=== PATIENT | female | born 1990 | race Caucasian/White ===

== ENCOUNTER 2020-12-09 07:18 | Inpatient (IN) | payer OTHER ==
[~2020-12-09] VITALS: Ht 162.6 cm; Wt 86.7 kg
[2020-12-09] MEDS ORDERED: BENZOCAINE/MENTHOL LOZENGE PO PRN (07:45)
[2020-12-09] MEDS ORDERED: BACITRACIN 28 GM OINTMENT TP PRN (07:45)
[2020-12-09] MEDS ORDERED: HYDROmorphone 2 MG/ML VIAL IVP PRN (07:45)
[2020-12-09] MEDS ORDERED: ONDANSETRON HCL 4 MG/2 ML VIAL IVP ONE (07:51)
[2020-12-09] MEDS ORDERED: PROPOFOL 1% 20 ML VIAL IVP ONE (07:51)
[2020-12-09] MEDS ORDERED: FentaNYL CITRATE PF 100 MCG/2 ML VIAL IVP ONE (07:51)
[2020-12-09] MEDS ORDERED: LIDOCAINE/PF 2% 5 ML VIAL IM ONE (07:51)
[2020-12-09] MEDS ORDERED: ROCURONIUM BROMIDE 10 MG/ML 5 ML VIAL IVP ONE (07:51)
[2020-12-09] MEDS ORDERED: MIDAZOLAM HCL 2 MG/2 ML VIAL IVP ONE (07:51)
[2020-12-09] MEDS ORDERED: RINGERS SOLUTION,LACTATED 1,000 ML IV ONE ×2 (08:00→12:33)
[2020-12-09 08:42] LABS: BASOPHILS % (AUTO) 0.7 % (0.0-2.0); EOSINOPHILS % (AUTO) 2.1 % (1.0-6.0); HEMATOCRIT 30.8 % (36-46); LYMPHOCYTES # (AUTO) 2.2 K/uL (1.0-4.8); LYMPHOCYTES % (AUTO) 24.3 % (22.0-44.0); MEAN CORPUSCULAR HEMOGLOBIN 24.3 pg (26.0-34.0); MEAN CORPUSCULAR HGB CONC 32.5 G/dL (31.0-37.0); MEAN CORPUSCULAR VOLUME 75 fL (80-100); MONOCYTES # (AUTO) 0.6 K/uL (0.1-1.0); MONOCYTES % (AUTO) 6.7 % (2.0-9.0); NEUTROPHILS # (AUTO) 6.1 K/uL (1.8-7.7); NEUTROPHILS % (AUTO) 66.2 % (40.0-70.0); PLATELET COUNT (AUTO) 599 K/uL (150-450); RED BLOOD CELL COUNT(AUTO) 4.11 MIL/uL (4.00-5.20); RED CELL DISTRIBUTION WIDTH 15.2 % (11.5-14.5)
[2020-12-09 08:53] LABS: INR 1.1 (0.9-1.1); PROTHROMBIN TIME 11.6 SEC (9.4-11.6)
[2020-12-09] MEDS ORDERED: CeFAZolin 2 GM/DEXTROSE 50 ML IV ONE (09:00)
[2020-12-09 09:08] LABS: ANION GAP 10 mmol/L (8-16); CALCIUM, TOTAL 9.2 mg/dL (8.8-10.5); CARBON DIOXIDE 26 mmol/L (22-29); CHLORIDE 100 mmol/L (98-107); CREATININE 0.87 mg/dL (0.60-1.30); GLOMERULAR FILTR. RATE CALC > 60 mL/min (>60); GLUCOSE,RANDOM 94 mg/dL (70-110); POTASSIUM 4.4 mmol/L (3.5-5.1); SODIUM SERUM 136 mmol/L (136-145); UREA NITROGEN, BLOOD 23 mg/dL (7-18)
[2020-12-09 09:10] LABS: COVID AG,FIA SOURCE NASOPHARYNGEAL
[2020-12-09 09:21] LABS: HCG,QUANTITATIVE < 1 mIU/mL (0-6)
[2020-12-09] MEDS ORDERED: CefTRIAXone SODIUM 1 GM/VIAL ONE (09:23)
[2020-12-09] MEDS ORDERED: LIDOCAINE 1%/EPI 1:200,000/PF 30 ML VIAL ONE (09:23)
[2020-12-09] MEDS ORDERED: BACITRACIN 50,000 UNITS/VIAL ONE (09:24)
[2020-12-09] MEDS ORDERED: VANCOMYCIN HCL 1 GM/VIAL ONE (09:24)
[2020-12-09] MEDS ORDERED: CeFAZolin 1 GM/DEXTROSE 50 ML IV ONE (10:03)
[2020-12-09] MEDS ORDERED: ACETAMINOPHEN 1000 MG/ISO-OSM 100 ML IV ONE ×2 (10:17→20:15)
[2020-12-09] MEDS ORDERED: SUGAMMADEX SODIUM 200 MG/2 ML VIAL IVP ONE (10:24)
[2020-12-09] MEDS ORDERED: FentaNYL CITRATE PF 100 MCG/2 ML VIAL IVP PRN (11:15)
[2020-12-09] MEDS ORDERED: MEPERIDINE-PF 25 MG/ML VIAL IVP PRN (11:15)
[2020-12-09] MEDS ORDERED: ROCURONIUM BROMIDE 10 MG/ML 5 ML VIAL ONE (11:23)
[2020-12-09] MEDS ORDERED: HYDROmorphone 2 MG/ML VIAL ONE (14:11)
[2020-12-09] MEDS: HYDROmorphone 2 MG/ML VIAL IVP PRN ×2 (14:15→14:47)
[2020-12-09 17:37] VITALS: BP 133/80
[2020-12-09 17:45] LABS: APPEARANCE,CSF CLEAR (CLEAR); COLOR,CSF COLORLESS (COLORLESS); CSF TOTAL VOLUME 1.1 mL; CSF TUBE NUMBER 1
[2020-12-09 17:46] LABS: LYMPHOCYTES1,CSF 0 %; MONOCYTES1,CSF 9 %; NEUTROPHILS1,CSF 91 %
[2020-12-09] MEDS ORDERED: CeFAZolin 1 GM/DEXTROSE 50 ML IV SCH (18:00)
[2020-12-09] MEDS ORDERED: *CLINICAL-CEFEPIME DOSING CLINICAL ONE (18:45)
[2020-12-09] MEDS: HYDROCODONE/ACETAMINOPHEN 10-325 MG TABLET PO PRN ×2 (19:00→22:56)
[2020-12-09] MEDS: ONDANSETRON HCL 4 MG/2 ML VIAL IVP PRN (19:00)
[2020-12-09 19:15] LABS: OTHER CELLS,CSF 0
[2020-12-09] MEDS ORDERED: VANCOMYCIN HCL 750 MG in DEXTROSE 5%-WATER 250 ML IV ONE (19:15)
[2020-12-09 19:50] VITALS: BP 127/77
[2020-12-09] MEDS ORDERED: PARoxetine HCL 10 MG TABLET PO ONE (20:00)
[2020-12-09] MEDS: OXYGEN THERAPY IH SCH (20:00)
[2020-12-09] MEDS: DOCUSATE SODIUM 100 MG CAPSULE PO SCH (21:00)
[2020-12-09] MEDS ORDERED: SODIUM CHLORIDE 0.9% 250 ML IV ONE (21:07)
[2020-12-09] MEDS: BACLOFEN 10 MG TABLET PO SCH (21:13)
[2020-12-09] MEDS: CarBAMazepine 200 MG TABLET PO SCH (21:13)
[2020-12-09] MEDS: DIVALPROEX SODIUM 500 MG DR TABLET PO SCH (21:13)
[2020-12-09] MEDS: METOPROLOL TARTRATE 25 MG TABLET PO SCH (21:13)
[2020-12-09] MEDS: LevETIRAcetam 500 MG TABLET PO SCH (21:14)
[2020-12-09] MEDS: CEFEPIME HCL 1 GM in DEXTROSE 5%-WATER 50 ML IV SCH (22:32)
[2020-12-09 23:27] VITALS: BP 129/78
[2020-12-10] MEDS ORDERED: VANCOMYCIN HCL 1 GM/D5% WATER 200 ML IV SCH
[2020-12-10] MEDS: VANCOMYCIN HCL 750 MG in DEXTROSE 5%-WATER 250 ML IV SCH ×4 (01:00→23:48)
[2020-12-10] MEDS: ONDANSETRON HCL 4 MG/2 ML VIAL IVP PRN (01:01)
[2020-12-10] MEDS: DiphenhydrAMINE HCL 50 MG/ML VIAL IVP PRN (02:05)
[2020-12-10] MEDS: HYDROCODONE/ACETAMINOPHEN 10-325 MG TABLET PO PRN ×3 (03:39→16:02)
[2020-12-10 04:20] VITALS: BP 111/64
[2020-12-10] MEDS: CEFEPIME HCL 1 GM in DEXTROSE 5%-WATER 50 ML IV SCH (05:31)
[2020-12-10] MEDS ORDERED: KETOROLAC TROMETHAMINE 30 MG/ML VIAL IVP PRN (06:30)
[2020-12-10] MEDS ORDERED: KETOROLAC TROMETHAMINE 15 MG/ML VIAL IVP ONE (06:45)
[2020-12-10 06:57] LABS: ALANINE AMINOTRANSFERASE 12 U/L (12-78); ALBUMIN 2.8 g/dL (3.4-5.0); ALKALINE PHOSPHATASE 72 U/L (46-116); ANION GAP 10 mmol/L (8-16); ASPARTATE AMINOTRANSFERASE 9 U/L (15-37); BILIRUBIN,TOTAL 0.2 mg/dL (0.1-1.0); CALCIUM, TOTAL 8.8 mg/dL (8.8-10.5); CARBON DIOXIDE 25 mmol/L (22-29); CHLORIDE 96 mmol/L (98-107); CREATININE 0.72 mg/dL (0.60-1.30); GLOMERULAR FILTR. RATE CALC > 60 mL/min (>60); GLUCOSE,RANDOM 121 mg/dL (70-110); POTASSIUM 3.8 mmol/L (3.5-5.1); SODIUM SERUM 131 mmol/L (136-145); TOTAL PROTEIN, SERUM 7.4 g/dL (6.4-8.2); UREA NITROGEN, BLOOD 15 mg/dL (7-18)
[2020-12-10 07:01] LABS: BASOPHILS % (AUTO) 0.4 % (0.0-2.0); EOSINOPHILS % (AUTO) 0 % (1.0-6.0); HEMATOCRIT 31.8 % (36-46); HEMOGLOBIN 9.9 g/dL (12.0-16.0); LYMPHOCYTES # (AUTO) 1.2 K/uL (1.0-4.8); LYMPHOCYTES % (AUTO) 7.8 % (22.0-44.0); MEAN CORPUSCULAR HEMOGLOBIN 24.2 pg (26.0-34.0); MEAN CORPUSCULAR HGB CONC 31.3 G/dL (31.0-37.0); MEAN CORPUSCULAR VOLUME 78 fL (80-100); MONOCYTES # (AUTO) 0.9 K/uL (0.1-1.0); MONOCYTES % (AUTO) 5.8 % (2.0-9.0); NEUTROPHILS # (AUTO) 13.6 K/uL (1.8-7.7); RED CELL DISTRIBUTION WIDTH 15.3 % (11.5-14.5)
[2020-12-10 07:03] LABS: PLATELET COUNT (AUTO) 602 K/uL (150-450)
[2020-12-10 07:07] VITALS: BP 108/74
[2020-12-10 07:59] LABS: PLATELET MORPHOLOGY COMMENT GIANT PLTS PRESENT
[2020-12-10] MEDS: OXYGEN THERAPY IH SCH (08:00)
[2020-12-10] MEDS: CarBAMazepine 200 MG TABLET PO SCH ×2 (08:02→20:21)
[2020-12-10] MEDS: METOPROLOL TARTRATE 25 MG TABLET PO SCH ×2 (08:02→20:22)
[2020-12-10] MEDS: BACLOFEN 10 MG TABLET PO SCH ×2 (08:02→20:21)
[2020-12-10] MEDS: LevETIRAcetam 500 MG TABLET PO SCH ×2 (08:02→20:22)
[2020-12-10] MEDS: DIVALPROEX SODIUM 500 MG DR TABLET PO SCH ×2 (08:03→20:22)
[2020-12-10] MEDS: DOCUSATE SODIUM 100 MG CAPSULE PO SCH ×2 (08:03→20:21)
[2020-12-10 11:22] VITALS: BP 119/73
[2020-12-10] MEDS: CEFEPIME HCL 2 GM in DEXTROSE 5%-WATER 50 ML IV SCH ×2 (14:16→22:10)
[2020-12-10 16:04] VITALS: BP 122/64
[2020-12-10 19:28] VITALS: BP 109/55
[2020-12-10 23:19] VITALS: BP 113/58
[2020-12-11] MEDS: HYDROCODONE/ACETAMINOPHEN 10-325 MG TABLET PO PRN ×3 (03:02→14:56)
[2020-12-11] MEDS: ONDANSETRON HCL 4 MG/2 ML VIAL IVP PRN ×2 (03:55→20:50)
[2020-12-11 04:26] VITALS: BP 105/56
[2020-12-11] MEDS: CEFEPIME HCL 2 GM in DEXTROSE 5%-WATER 50 ML IV SCH ×3 (05:19→22:20)
[2020-12-11 06:20] LABS: BASOPHILS % (AUTO) 0.6 % (0.0-2.0); EOSINOPHILS % (AUTO) 0.6 % (1.0-6.0); HEMATOCRIT 27.8 % (36-46); HEMOGLOBIN 8.9 g/dL (12.0-16.0); LYMPHOCYTES # (AUTO) 1.9 K/uL (1.0-4.8); LYMPHOCYTES % (AUTO) 20.5 % (22.0-44.0); MEAN CORPUSCULAR HEMOGLOBIN 24.3 pg (26.0-34.0); MEAN CORPUSCULAR HGB CONC 32.2 G/dL (31.0-37.0); MEAN CORPUSCULAR VOLUME 76 fL (80-100); MONOCYTES # (AUTO) 0.7 K/uL (0.1-1.0); MONOCYTES % (AUTO) 7.2 % (2.0-9.0); NEUTROPHILS # (AUTO) 6.7 K/uL (1.8-7.7); NEUTROPHILS % (AUTO) 71.1 % (40.0-70.0); PLATELET COUNT (AUTO) 557 K/uL (150-450); RED BLOOD CELL COUNT(AUTO) 3.68 MIL/uL (4.00-5.20); RED CELL DISTRIBUTION WIDTH 15.7 % (11.5-14.5)
[2020-12-11 06:43] LABS: ALANINE AMINOTRANSFERASE 12 U/L (12-78); ALBUMIN 2.6 g/dL (3.4-5.0); ALKALINE PHOSPHATASE 67 U/L (46-116); ANION GAP 12 mmol/L (8-16); ASPARTATE AMINOTRANSFERASE 7 U/L (15-37); BILIRUBIN,TOTAL 0.2 mg/dL (0.1-1.0); CALCIUM, TOTAL 8.6 mg/dL (8.8-10.5); CARBON DIOXIDE 25 mmol/L (22-29); CHLORIDE 99 mmol/L (98-107); CREATININE 0.71 mg/dL (0.60-1.30); GLOMERULAR FILTR. RATE CALC > 60 mL/min (>60); GLUCOSE,RANDOM 92 mg/dL (70-110); POTASSIUM 3.8 mmol/L (3.5-5.1); SODIUM SERUM 136 mmol/L (136-145); TOTAL PROTEIN, SERUM 7.2 g/dL (6.4-8.2); UREA NITROGEN, BLOOD 11 mg/dL (7-18); VANCOMYCIN,RANDOM 16.7 mcg/mL (25.0-50.0)
[2020-12-11 07:13] VITALS: BP 104/65
[2020-12-11] MEDS: OXYGEN THERAPY IH SCH ×2 (08:00→20:00)
[2020-12-11] MEDS: DIVALPROEX SODIUM 500 MG DR TABLET PO SCH ×2 (08:23→20:21)
[2020-12-11] MEDS: DOCUSATE SODIUM 100 MG CAPSULE PO SCH ×2 (08:23→20:21)
[2020-12-11] MEDS: LevETIRAcetam 500 MG TABLET PO SCH ×2 (08:23→20:21)
[2020-12-11] MEDS: BACLOFEN 10 MG TABLET PO SCH ×2 (08:23→20:21)
[2020-12-11] MEDS: CarBAMazepine 200 MG TABLET PO SCH ×2 (08:23→20:22)
[2020-12-11] MEDS: METOPROLOL TARTRATE 25 MG TABLET PO SCH ×2 (08:23→23:30)
[2020-12-11] MEDS ORDERED: ACETAMINOPHEN 325 MG TABLET ONE (08:25)
[2020-12-11] MEDS: VANCOMYCIN HCL 750 MG in DEXTROSE 5%-WATER 250 ML IV SCH (09:31)
[2020-12-11 11:48] VITALS: BP 105/65
[2020-12-11 15:42] VITALS: BP 117/87
[2020-12-11 19:16] VITALS: BP 113/66
[2020-12-11] MEDS: VANCOMYCIN HCL 1 GM/D5% WATER 200 ML IV SCH (23:41)
[2020-12-11 23:42] VITALS: BP 127/65
[2020-12-12] MEDS: HYDROCODONE/ACETAMINOPHEN 10-325 MG TABLET PO PRN ×3 (01:07→15:08)
[2020-12-12] MEDS: CEFEPIME HCL 2 GM in DEXTROSE 5%-WATER 50 ML IV SCH ×4 (05:15→22:20)
[2020-12-12 07:15] LABS: EOSINOPHILS % (AUTO) 1.8 % (1.0-6.0); HEMATOCRIT 27.7 % (36-46); HEMOGLOBIN 8.9 g/dL (12.0-16.0); LYMPHOCYTES # (AUTO) 2.3 K/uL (1.0-4.8); LYMPHOCYTES % (AUTO) 35.1 % (22.0-44.0); MEAN CORPUSCULAR HEMOGLOBIN 24.2 pg (26.0-34.0); MEAN CORPUSCULAR VOLUME 76 fL (80-100); MONOCYTES # (AUTO) 0.6 K/uL (0.1-1.0); MONOCYTES % (AUTO) 9.9 % (2.0-9.0); NEUTROPHILS # (AUTO) 3.4 K/uL (1.8-7.7); NEUTROPHILS % (AUTO) 52.2 % (40.0-70.0); PLATELET COUNT (AUTO) 568 K/uL (150-450); RED BLOOD CELL COUNT(AUTO) 3.66 MIL/uL (4.00-5.20); RED CELL DISTRIBUTION WIDTH 15.7 % (11.5-14.5)
[2020-12-12 07:30] VITALS: BP 106/74
[2020-12-12] MEDS: OXYGEN THERAPY IH SCH ×2 (08:00→20:00)
[2020-12-12] MEDS: DIVALPROEX SODIUM 500 MG DR TABLET PO SCH ×2 (08:02→20:01)
[2020-12-12] MEDS: METOPROLOL TARTRATE 25 MG TABLET PO SCH ×2 (08:02→20:02)
[2020-12-12] MEDS: CarBAMazepine 200 MG TABLET PO SCH ×2 (08:02→20:02)
[2020-12-12] MEDS: DOCUSATE SODIUM 100 MG CAPSULE PO SCH ×2 (08:02→20:01)
[2020-12-12] MEDS: BACLOFEN 10 MG TABLET PO SCH ×2 (08:02→20:02)
[2020-12-12] MEDS: VANCOMYCIN HCL 1 GM/D5% WATER 200 ML IV SCH (08:03)
[2020-12-12] MEDS: LevETIRAcetam 500 MG TABLET PO SCH ×2 (08:03→20:02)
[2020-12-12 08:06] LABS: ALANINE AMINOTRANSFERASE 12 U/L (12-78); ALBUMIN 2.6 g/dL (3.4-5.0); ALKALINE PHOSPHATASE 63 U/L (46-116); ANION GAP 10 mmol/L (8-16); ASPARTATE AMINOTRANSFERASE 9 U/L (15-37); BILIRUBIN,TOTAL 0.2 mg/dL (0.1-1.0); CARBON DIOXIDE 27 mmol/L (22-29); CHLORIDE 99 mmol/L (98-107); CREATININE 0.66 mg/dL (0.60-1.30); GLOMERULAR FILTR. RATE CALC > 60 mL/min (>60); GLUCOSE,RANDOM 78 mg/dL (70-110); SODIUM SERUM 136 mmol/L (136-145); TOTAL PROTEIN, SERUM 7.3 g/dL (6.4-8.2); UREA NITROGEN, BLOOD 12 mg/dL (7-18)
[2020-12-12 11:45] VITALS: BP 117/70
[2020-12-12] MEDS ORDERED: LIDOCAINE 1% 10 ML VIAL SQ ONE (13:45)
[2020-12-12] MEDS ORDERED: 0.9% SODIUM CHLORIDE 10 ML SYRINGE IVP PRN (13:45)
[2020-12-12 15:21] VITALS: BP 127/71
[2020-12-12] MEDS ORDERED: SODIUM CHLORIDE 0.9% 250 ML IV ONE (19:58)
[2020-12-12 20:33] VITALS: BP 120/64
[2020-12-12] MEDS: RisperiDONE 1 MG TABLET PO PRN (22:21)
[2020-12-12 23:14] VITALS: BP 117/65
[2020-12-12 23:24] VITALS: BP 137/73
[2020-12-13] MEDS: VANCOMYCIN HCL 1 GM/D5% WATER 200 ML IV SCH ×4 (00:27→23:09)
[2020-12-13 04:17] VITALS: BP 137/74
[2020-12-13] MEDS: HYDROCODONE/ACETAMINOPHEN 10-325 MG TABLET PO PRN ×2 (04:24→20:05)
[2020-12-13] MEDS: CEFEPIME HCL 2 GM in DEXTROSE 5%-WATER 50 ML IV SCH ×3 (06:05→21:09)
[2020-12-13 06:32] LABS: BASOPHILS % (AUTO) 0.9 % (0.0-2.0); EOSINOPHILS % (AUTO) 1.9 % (1.0-6.0); HEMOGLOBIN 9.2 g/dL (12.0-16.0); LYMPHOCYTES # (AUTO) 1.6 K/uL (1.0-4.8); LYMPHOCYTES % (AUTO) 25.5 % (22.0-44.0); MEAN CORPUSCULAR HGB CONC 31.8 G/dL (31.0-37.0); MEAN CORPUSCULAR VOLUME 76 fL (80-100); MONOCYTES # (AUTO) 0.5 K/uL (0.1-1.0); MONOCYTES % (AUTO) 7.5 % (2.0-9.0); NEUTROPHILS # (AUTO) 3.9 K/uL (1.8-7.7); NEUTROPHILS % (AUTO) 64.2 % (40.0-70.0); PLATELET COUNT (AUTO) 603 K/uL (150-450); RED BLOOD CELL COUNT(AUTO) 3.84 MIL/uL (4.00-5.20); RED CELL DISTRIBUTION WIDTH 15.5 % (11.5-14.5)
[2020-12-13 06:46] LABS: ALANINE AMINOTRANSFERASE 13 U/L (12-78); ALBUMIN 2.7 g/dL (3.4-5.0); ALKALINE PHOSPHATASE 67 U/L (46-116); ANION GAP 12 mmol/L (8-16); ASPARTATE AMINOTRANSFERASE 7 U/L (15-37); BILIRUBIN,TOTAL 0.2 mg/dL (0.1-1.0); CALCIUM, TOTAL 8.9 mg/dL (8.8-10.5); CARBON DIOXIDE 24 mmol/L (22-29); CHLORIDE 100 mmol/L (98-107); GLOMERULAR FILTR. RATE CALC > 60 mL/min (>60); GLUCOSE,RANDOM 92 mg/dL (70-110); POTASSIUM 3.4 mmol/L (3.5-5.1); SODIUM SERUM 136 mmol/L (136-145); TOTAL PROTEIN, SERUM 7.4 g/dL (6.4-8.2); UREA NITROGEN, BLOOD 16 mg/dL (7-18); VANCOMYCIN,RANDOM 23.7 mcg/mL (25.0-50.0)
[2020-12-13] MEDS: OXYGEN THERAPY IH SCH ×2 (08:00→20:04)
[2020-12-13] MEDS: DOCUSATE SODIUM 100 MG CAPSULE PO SCH ×3 (08:08→20:11)
[2020-12-13] MEDS: BACLOFEN 10 MG TABLET PO SCH ×3 (08:09→20:12)
[2020-12-13] MEDS: DIVALPROEX SODIUM 500 MG DR TABLET PO SCH ×3 (08:09→20:12)
[2020-12-13] MEDS: CarBAMazepine 200 MG TABLET PO SCH ×2 (08:15→20:12)
[2020-12-13] MEDS: LevETIRAcetam 500 MG TABLET PO SCH ×2 (08:16→20:12)
[2020-12-13] MEDS: RisperiDONE 1 MG TABLET PO SCH (08:16)
[2020-12-13] MEDS: METOPROLOL TARTRATE 25 MG TABLET PO SCH ×2 (08:16→20:11)
[2020-12-13 08:19] VITALS: BP 119/60
[2020-12-13] MEDS ORDERED: VANCOMYCIN HCL 1 GM/VIAL ONE (09:47)
[2020-12-13] MEDS ORDERED: LIDOCAINE 1%/EPI 1:200,000/PF 10 ML VIAL ONE (09:47)
[2020-12-13] MEDS ORDERED: CefTRIAXone SODIUM 1 GM/VIAL ONE (09:47)
[2020-12-13] MEDS ORDERED: BACITRACIN 50,000 UNITS/VIAL ONE ×2 (09:48→09:57)
[2020-12-13] MEDS ORDERED: RINGERS SOLUTION,LACTATED 1,000 ML IV ONE ×2 (09:54→10:00)
[2020-12-13] MEDS ORDERED: BACITRACIN 28 GM OINTMENT TP ONE ×2 (09:57→11:37)
[2020-12-13] MEDS ORDERED: SODIUM CHLORIDE 0.9% 20 ML ONE (09:57)
[2020-12-13] MEDS ORDERED: HYDROmorphone 2 MG/ML VIAL ONE (12:03)
[2020-12-13] MEDS ORDERED: ACETAMINOPHEN 1000 MG/ISO-OSM 100 ML IV ONE ×2 (12:17→12:30)
[2020-12-13] MEDS ORDERED: HYDROmorphone 2 MG/ML VIAL IVP ONE (12:30)
[2020-12-13 13:34] LABS: GLUCOSE, CSF 59 mg/dL (50-80); TOTAL PROTEIN, CSF 33 mg/dL (15-45)
[2020-12-13] MEDS ORDERED: POTASSIUM CHLORIDE 20 MEQ ER TABLET PO ONE (14:00)
[2020-12-13] MEDS: ONDANSETRON HCL 4 MG/2 ML VIAL IVP PRN (14:11)
[2020-12-13] MEDS: RisperiDONE 1 MG TABLET PO PRN ×2 (14:51→23:09)
[2020-12-13 15:36] LABS: CSF TUBE NUMBER 1
[2020-12-13 15:37] LABS: APPEARANCE,CSF HAZY (CLEAR); COLOR,CSF COLORLESS (COLORLESS)
[2020-12-13 15:45] LABS: LYMPHOCYTES1,CSF 24 %; MONOCYTES1,CSF 8 %; NEUTROPHILS1,CSF 68 %
[2020-12-13 16:00] VITALS: BP 134/82
[2020-12-13] MEDS ORDERED: MORPHINE SULFATE 2 MG/ML SYRINGE IVP ONE (16:45)
[2020-12-13] MEDS: DEXAMETHASONE SOD PHOS 4 MG/ML VIAL IVP PRN (19:04)
[2020-12-13 20:05] VITALS: BP 131/93
[2020-12-13 21:05] VITALS: BP 141/97
[2020-12-13] MEDS: MORPHINE SULFATE 2 MG/ML SYRINGE IVP PRN (21:09)
[2020-12-13 21:20] VITALS: BP 143/85
[2020-12-13] MEDS ORDERED: POTASSIUM CHLORIDE 20 MEQ ER TABLET PO PRN (23:45)
[2020-12-14] VITALS (10 sets, daily range): BP systolic 104–150; BP diastolic 59–94
[2020-12-14] MEDS: MORPHINE SULFATE 2 MG/ML SYRINGE IVP PRN ×3 (01:16→10:51)
[2020-12-14] MEDS: DiphenhydrAMINE HCL 50 MG/ML VIAL IVP PRN ×3 (01:21→20:07)
[2020-12-14] MEDS: CEFEPIME HCL 2 GM in DEXTROSE 5%-WATER 50 ML IV SCH (05:28)
[2020-12-14 05:38] LABS: BASOPHILS % (AUTO) 0.7 % (0.0-2.0); EOSINOPHILS % (AUTO) 0.4 % (1.0-6.0); HEMATOCRIT 28.2 % (36-46); HEMOGLOBIN 9.2 g/dL (12.0-16.0); LYMPHOCYTES # (AUTO) 2.5 K/uL (1.0-4.8); LYMPHOCYTES % (AUTO) 26.2 % (22.0-44.0); MEAN CORPUSCULAR HEMOGLOBIN 24.7 pg (26.0-34.0); MEAN CORPUSCULAR HGB CONC 32.6 G/dL (31.0-37.0); MEAN CORPUSCULAR VOLUME 76 fL (80-100); MONOCYTES # (AUTO) 0.7 K/uL (0.1-1.0); MONOCYTES % (AUTO) 6.9 % (2.0-9.0); NEUTROPHILS # (AUTO) 6.3 K/uL (1.8-7.7); NEUTROPHILS % (AUTO) 65.8 % (40.0-70.0); PLATELET COUNT (AUTO) 573 K/uL (150-450); RED BLOOD CELL COUNT(AUTO) 3.72 MIL/uL (4.00-5.20); RED CELL DISTRIBUTION WIDTH 15.5 % (11.5-14.5)
[2020-12-14] MEDS ORDERED: 0.9% SODIUM CHLORIDE 10 ML VIAL IVP ONE (05:39)
[2020-12-14] MEDS ORDERED: ONDANSETRON HCL 4 MG/2 ML VIAL IVP ONE (05:39)
[2020-12-14] MEDS ORDERED: FentaNYL CITRATE PF 100 MCG/2 ML VIAL IVP ONE (05:39)
[2020-12-14] MEDS ORDERED: PROPOFOL 1% 20 ML VIAL IVP ONE (05:39)
[2020-12-14] MEDS ORDERED: LIDOCAINE/PF 2% 5 ML VIAL IM ONE (05:39)
[2020-12-14] MEDS ORDERED: DEXAMETHASONE SOD PHOS 4 MG/ML VIAL IVP ONE (05:39)
[2020-12-14 06:08] LABS: ALANINE AMINOTRANSFERASE 12 U/L (12-78); ALBUMIN 2.7 g/dL (3.4-5.0); ALKALINE PHOSPHATASE 69 U/L (46-116); ANION GAP 11 mmol/L (8-16); ASPARTATE AMINOTRANSFERASE 6 U/L (15-37); BILIRUBIN,TOTAL 0.2 mg/dL (0.1-1.0); CARBON DIOXIDE 24 mmol/L (22-29); CHLORIDE 99 mmol/L (98-107); GLOMERULAR FILTR. RATE CALC > 60 mL/min (>60); GLUCOSE,RANDOM 95 mg/dL (70-110); POTASSIUM 4.3 mmol/L (3.5-5.1); SODIUM SERUM 134 mmol/L (136-145); TOTAL PROTEIN, SERUM 7.3 g/dL (6.4-8.2); UREA NITROGEN, BLOOD 11 mg/dL (7-18); VANCOMYCIN,RANDOM 25.4 mcg/mL (25.0-50.0)
[2020-12-14] MEDS: OXYGEN THERAPY IH SCH (08:00)
[2020-12-14] MEDS: HYDROCODONE/ACETAMINOPHEN 10-325 MG TABLET PO PRN ×3 (08:18→21:14)
[2020-12-14] MEDS: BACLOFEN 10 MG TABLET PO SCH ×2 (08:59→20:08)
[2020-12-14] MEDS: DOCUSATE SODIUM 100 MG CAPSULE PO SCH ×2 (08:59→20:08)
[2020-12-14] MEDS: VANCOMYCIN HCL 1 GM/D5% WATER 200 ML IV SCH (08:59)
[2020-12-14] MEDS: METOPROLOL TARTRATE 25 MG TABLET PO SCH ×2 (09:00→20:07)
[2020-12-14] MEDS: DIVALPROEX SODIUM 500 MG DR TABLET PO SCH ×2 (09:01→20:08)
[2020-12-14] MEDS: LevETIRAcetam 500 MG TABLET PO SCH ×2 (09:01→20:08)
[2020-12-14] MEDS: RisperiDONE 1 MG TABLET PO SCH (09:01)
[2020-12-14] MEDS: CarBAMazepine 200 MG TABLET PO SCH ×2 (09:01→20:07)
[2020-12-14] MEDS: NAFCILLIN SODIUM 2 GM in DEXTROSE 5%-WATER 100 ML IV SCH ×3 (11:48→20:07)
[2020-12-14] MEDS: ONDANSETRON HCL 4 MG/2 ML VIAL IVP PRN (16:00)
[2020-12-14] MEDS: RisperiDONE 1 MG TABLET PO PRN (21:44)
[2020-12-15] VITALS (8 sets, daily range): BP systolic 99–121; BP diastolic 54–83
[2020-12-15] MEDS: NAFCILLIN SODIUM 2 GM in DEXTROSE 5%-WATER 100 ML IV SCH ×6 (00:05→20:01)
[2020-12-15] MEDS: HYDROCODONE/ACETAMINOPHEN 10-325 MG TABLET PO PRN ×3 (05:14→18:50)
[2020-12-15] MEDS: MAG HYDROX/AL HYDROX/SIMETH 30 ML SUSP UDCUP PO PRN ×2 (05:15→20:01)
[2020-12-15] MEDS: DiphenhydrAMINE HCL 50 MG/ML VIAL IVP PRN ×3 (05:15→21:29)
[2020-12-15 05:52] LABS: BASOPHILS % (AUTO) 0.9 % (0.0-2.0); EOSINOPHILS % (AUTO) 1.8 % (1.0-6.0); HEMATOCRIT 28.2 % (36-46); LYMPHOCYTES # (AUTO) 2.5 K/uL (1.0-4.8); LYMPHOCYTES % (AUTO) 32.2 % (22.0-44.0); MEAN CORPUSCULAR HEMOGLOBIN 24.2 pg (26.0-34.0); MEAN CORPUSCULAR HGB CONC 31.8 G/dL (31.0-37.0); MEAN CORPUSCULAR VOLUME 76 fL (80-100); MONOCYTES # (AUTO) 0.7 K/uL (0.1-1.0); MONOCYTES % (AUTO) 9.3 % (2.0-9.0); NEUTROPHILS # (AUTO) 4.4 K/uL (1.8-7.7); NEUTROPHILS % (AUTO) 55.8 % (40.0-70.0); PLATELET COUNT (AUTO) 575 K/uL (150-450); RED BLOOD CELL COUNT(AUTO) 3.71 MIL/uL (4.00-5.20); RED CELL DISTRIBUTION WIDTH 15.8 % (11.5-14.5)
[2020-12-15 06:07] LABS: ALANINE AMINOTRANSFERASE 8 U/L (12-78); ALBUMIN 2.6 g/dL (3.4-5.0); ALKALINE PHOSPHATASE 68 U/L (46-116); ANION GAP 10 mmol/L (8-16); ASPARTATE AMINOTRANSFERASE 6 U/L (15-37); BILIRUBIN,TOTAL 0.2 mg/dL (0.1-1.0); CALCIUM, TOTAL 8.8 mg/dL (8.8-10.5); CARBON DIOXIDE 27 mmol/L (22-29); CHLORIDE 99 mmol/L (98-107); CREATININE 0.69 mg/dL (0.60-1.30); GLOMERULAR FILTR. RATE CALC > 60 mL/min (>60); GLUCOSE,RANDOM 92 mg/dL (70-110); POTASSIUM 3.6 mmol/L (3.5-5.1); SODIUM SERUM 136 mmol/L (136-145); TOTAL PROTEIN, SERUM 7.1 g/dL (6.4-8.2); UREA NITROGEN, BLOOD 10 mg/dL (7-18)
[2020-12-15] MEDS ORDERED: SODIUM CHLORIDE 0.9% 250 ML IV ONE ×2 (08:15→23:05)
[2020-12-15] MEDS: METOPROLOL TARTRATE 25 MG TABLET PO SCH ×2 (09:00→20:00)
[2020-12-15] MEDS: BACLOFEN 10 MG TABLET PO SCH ×2 (09:57→20:00)
[2020-12-15] MEDS: LevETIRAcetam 500 MG TABLET PO SCH ×2 (09:57→20:00)
[2020-12-15] MEDS: DIVALPROEX SODIUM 500 MG DR TABLET PO SCH ×2 (09:57→20:00)
[2020-12-15] MEDS: DOCUSATE SODIUM 100 MG CAPSULE PO SCH ×2 (09:57→20:00)
[2020-12-15] MEDS: RisperiDONE 1 MG TABLET PO SCH (09:58)
[2020-12-15] MEDS: CarBAMazepine 200 MG TABLET PO SCH ×2 (09:58→20:00)
[2020-12-15] MEDS ORDERED: MIDAZOLAM HCL 2 MG/2 ML VIAL IVP ONE (16:17)
[2020-12-15] MEDS ORDERED: FentaNYL CITRATE PF 100 MCG/2 ML VIAL IVP ONE (16:17)
[2020-12-15 16:35] LABS: C-REACTIVE PROTEIN QUANT 12.15 mg/dL (0.00-0.30)
[2020-12-15] MEDS: ONDANSETRON HCL 4 MG/2 ML VIAL IVP PRN (17:40)
[2020-12-15] MEDS: RisperiDONE 1 MG TABLET PO PRN (17:40)
[2020-12-16] VITALS (10 sets, daily range): BP systolic 97–136; BP diastolic 49–71
[2020-12-16] MEDS: HYDROCODONE/ACETAMINOPHEN 10-325 MG TABLET PO PRN ×3 (00:50→19:57)
[2020-12-16] MEDS: NAFCILLIN SODIUM 2 GM in DEXTROSE 5%-WATER 100 ML IV SCH ×6 (00:50→19:56)
[2020-12-16 05:29] LABS: BASOPHILS % (AUTO) 1.1 % (0.0-2.0); EOSINOPHILS % (AUTO) 1.6 % (1.0-6.0); HEMATOCRIT 26.5 % (36-46); HEMOGLOBIN 8.6 g/dL (12.0-16.0); LYMPHOCYTES # (AUTO) 2.6 K/uL (1.0-4.8); LYMPHOCYTES % (AUTO) 40.1 % (22.0-44.0); MEAN CORPUSCULAR HEMOGLOBIN 24.7 pg (26.0-34.0); MEAN CORPUSCULAR HGB CONC 32.4 G/dL (31.0-37.0); MEAN CORPUSCULAR VOLUME 76 fL (80-100); MONOCYTES # (AUTO) 0.4 K/uL (0.1-1.0); MONOCYTES % (AUTO) 6.8 % (2.0-9.0); NEUTROPHILS # (AUTO) 3.3 K/uL (1.8-7.7); NEUTROPHILS % (AUTO) 50.4 % (40.0-70.0); PLATELET COUNT (AUTO) 460 K/uL (150-450); RED BLOOD CELL COUNT(AUTO) 3.47 MIL/uL (4.00-5.20); RED CELL DISTRIBUTION WIDTH 15.8 % (11.5-14.5)
[2020-12-16 06:00] LABS: ALANINE AMINOTRANSFERASE 12 U/L (12-78); ALBUMIN 2.5 g/dL (3.4-5.0); ALKALINE PHOSPHATASE 60 U/L (46-116); ANION GAP 9 mmol/L (8-16); ASPARTATE AMINOTRANSFERASE 8 U/L (15-37); BILIRUBIN,TOTAL 0.5 mg/dL (0.1-1.0); CALCIUM, TOTAL 8.2 mg/dL (8.8-10.5); CARBON DIOXIDE 28 mmol/L (22-29); CHLORIDE 99 mmol/L (98-107); CREATININE 0.72 mg/dL (0.60-1.30); GLOMERULAR FILTR. RATE CALC > 60 mL/min (>60); GLUCOSE,RANDOM 107 mg/dL (70-110); POTASSIUM 3.2 mmol/L (3.5-5.1); SODIUM SERUM 136 mmol/L (136-145); TOTAL PROTEIN, SERUM 6.7 g/dL (6.4-8.2); UREA NITROGEN, BLOOD 12 mg/dL (7-18)
[2020-12-16] MEDS: POTASSIUM CHL 10 MEQ/WATER 50 ML IV PRN ×3 (06:41→09:16)
[2020-12-16] MEDS: METOPROLOL TARTRATE 25 MG TABLET PO SCH ×2 (09:11→20:00)
[2020-12-16] MEDS: DIVALPROEX SODIUM 500 MG DR TABLET PO SCH ×2 (09:11→20:00)
[2020-12-16] MEDS: RisperiDONE 1 MG TABLET PO SCH (09:11)
[2020-12-16] MEDS: BACLOFEN 10 MG TABLET PO SCH ×2 (09:11→20:00)
[2020-12-16] MEDS: DOCUSATE SODIUM 100 MG CAPSULE PO SCH ×2 (09:11→20:00)
[2020-12-16] MEDS: CarBAMazepine 200 MG TABLET PO SCH ×2 (09:12→20:00)
[2020-12-16] MEDS: DiphenhydrAMINE HCL 50 MG/ML VIAL IVP PRN ×2 (09:12→17:48)
[2020-12-16] MEDS: LevETIRAcetam 500 MG TABLET PO SCH ×2 (09:14→20:00)
[2020-12-16 11:30] LABS: MAGNESIUM 2.5 mg/dL (1.80-2.40)
[2020-12-16] MEDS: RisperiDONE 1 MG TABLET PO PRN (19:57)
[2020-12-17] VITALS (8 sets, daily range): BP systolic 98–122; BP diastolic 51–74
[2020-12-17] MEDS: DiphenhydrAMINE HCL 50 MG/ML VIAL IVP PRN ×3 (00:21→18:22)
[2020-12-17] MEDS: NAFCILLIN SODIUM 2 GM in DEXTROSE 5%-WATER 100 ML IV SCH ×6 (00:21→20:35)
[2020-12-17] MEDS: HYDROCODONE/ACETAMINOPHEN 10-325 MG TABLET PO PRN ×4 (00:59→20:34)
[2020-12-17] MEDS: ONDANSETRON HCL 4 MG/2 ML VIAL IVP PRN (01:00)
[2020-12-17] MEDS ORDERED: BISACODYL 10 MG RECTAL RECTAL SUPPOSITORY PR PRN (01:00)
[2020-12-17] MEDS: RisperiDONE 1 MG TABLET PO PRN ×2 (01:00→20:35)
[2020-12-17] MEDS: MAG HYDROX/AL HYDROX/SIMETH 30 ML SUSP UDCUP PO PRN (04:51)
[2020-12-17 06:28] LABS: BASOPHILS % (AUTO) 0.7 % (0.0-2.0); EOSINOPHILS % (AUTO) 1.9 % (1.0-6.0); HEMATOCRIT 26.8 % (36-46); HEMOGLOBIN 8.6 g/dL (12.0-16.0); LYMPHOCYTES # (AUTO) 2.3 K/uL (1.0-4.8); LYMPHOCYTES % (AUTO) 37.3 % (22.0-44.0); MEAN CORPUSCULAR HEMOGLOBIN 24.6 pg (26.0-34.0); MEAN CORPUSCULAR HGB CONC 32.2 G/dL (31.0-37.0); MEAN CORPUSCULAR VOLUME 76 fL (80-100); MONOCYTES # (AUTO) 0.4 K/uL (0.1-1.0); MONOCYTES % (AUTO) 6.8 % (2.0-9.0); NEUTROPHILS # (AUTO) 3.3 K/uL (1.8-7.7); NEUTROPHILS % (AUTO) 53.3 % (40.0-70.0); PLATELET COUNT (AUTO) 500 K/uL (150-450); RED BLOOD CELL COUNT(AUTO) 3.51 MIL/uL (4.00-5.20); RED CELL DISTRIBUTION WIDTH 16.1 % (11.5-14.5)
[2020-12-17 06:36] LABS: ANION GAP 11 mmol/L (8-16); CALCIUM, TOTAL 8.4 mg/dL (8.8-10.5); CARBON DIOXIDE 25 mmol/L (22-29); CHLORIDE 100 mmol/L (98-107); CREATININE 0.75 mg/dL (0.60-1.30); GLOMERULAR FILTR. RATE CALC > 60 mL/min (>60); GLUCOSE,RANDOM 120 mg/dL (70-110); POTASSIUM 3.9 mmol/L (3.5-5.1); SODIUM SERUM 136 mmol/L (136-145); UREA NITROGEN, BLOOD 15 mg/dL (7-18)
[2020-12-17] MEDS: DIVALPROEX SODIUM 500 MG DR TABLET PO SCH ×2 (08:39→20:35)
[2020-12-17] MEDS: DOCUSATE SODIUM 100 MG CAPSULE PO SCH ×2 (08:39→20:35)
[2020-12-17] MEDS: CarBAMazepine 200 MG TABLET PO SCH ×2 (08:39→20:35)
[2020-12-17] MEDS: LevETIRAcetam 500 MG TABLET PO SCH ×2 (08:40→20:34)
[2020-12-17] MEDS: BACLOFEN 10 MG TABLET PO SCH ×2 (08:40→20:34)
[2020-12-17] MEDS: METOPROLOL TARTRATE 25 MG TABLET PO SCH ×2 (08:40→20:35)
[2020-12-17] MEDS: RisperiDONE 1 MG TABLET PO SCH (08:40)
[2020-12-17] MEDS ORDERED: SODIUM CHLORIDE 0.9% 250 ML IV ONE (20:31)
[2020-12-17 23:29] LABS: GLUCOSE, CSF 67 mg/dL (50-80); TOTAL PROTEIN, CSF 33 mg/dL (15-45)
[2020-12-18] VITALS (9 sets, daily range): BP systolic 103–129; BP diastolic 51–76
[2020-12-18] MEDS: ONDANSETRON HCL 4 MG/2 ML VIAL IVP PRN ×3 (00:17→21:19)
[2020-12-18] MEDS: NAFCILLIN SODIUM 2 GM in DEXTROSE 5%-WATER 100 ML IV SCH ×7 (00:17→23:55)
[2020-12-18 00:31] LABS: APPEARANCE,CSF HAZY (CLEAR); COLOR,CSF PINK (COLORLESS); CSF TUBE NUMBER 1
[2020-12-18 02:22] LABS: LYMPHOCYTES1,CSF 95 %; MONOCYTES1,CSF 1 %; NEUTROPHILS1,CSF 4 %
[2020-12-18] MEDS: DiphenhydrAMINE HCL 50 MG/ML VIAL IVP PRN ×3 (02:37→19:27)
[2020-12-18] MEDS: HYDROCODONE/ACETAMINOPHEN 10-325 MG TABLET PO PRN ×4 (02:37→23:56)
[2020-12-18 06:48] LABS: BASOPHILS % (AUTO) 0.7 % (0.0-2.0); EOSINOPHILS % (AUTO) 3.1 % (1.0-6.0); HEMATOCRIT 27.9 % (36-46); LYMPHOCYTES # (AUTO) 2.2 K/uL (1.0-4.8); LYMPHOCYTES % (AUTO) 37.8 % (22.0-44.0); MEAN CORPUSCULAR HEMOGLOBIN 24.8 pg (26.0-34.0); MEAN CORPUSCULAR HGB CONC 32.4 G/dL (31.0-37.0); MEAN CORPUSCULAR VOLUME 76 fL (80-100); MONOCYTES # (AUTO) 0.4 K/uL (0.1-1.0); MONOCYTES % (AUTO) 7.3 % (2.0-9.0); NEUTROPHILS % (AUTO) 51.1 % (40.0-70.0); PLATELET COUNT (AUTO) 477 K/uL (150-450); RED BLOOD CELL COUNT(AUTO) 3.65 MIL/uL (4.00-5.20); RED CELL DISTRIBUTION WIDTH 16.4 % (11.5-14.5)
[2020-12-18 07:03] LABS: ALANINE AMINOTRANSFERASE 13 U/L (12-78); ALBUMIN 2.7 g/dL (3.4-5.0); ALKALINE PHOSPHATASE 62 U/L (46-116); ANION GAP 12 mmol/L (8-16); ASPARTATE AMINOTRANSFERASE 6 U/L (15-37); BILIRUBIN,TOTAL 0.5 mg/dL (0.1-1.0); CALCIUM, TOTAL 8.8 mg/dL (8.8-10.5); CARBON DIOXIDE 24 mmol/L (22-29); CHLORIDE 101 mmol/L (98-107); CREATININE 0.72 mg/dL (0.60-1.30); GLOMERULAR FILTR. RATE CALC > 60 mL/min (>60); GLUCOSE,RANDOM 102 mg/dL (70-110); POTASSIUM 3.8 mmol/L (3.5-5.1); SODIUM SERUM 137 mmol/L (136-145); TOTAL PROTEIN, SERUM 6.9 g/dL (6.4-8.2); UREA NITROGEN, BLOOD 15 mg/dL (7-18)
[2020-12-18] MEDS: DOCUSATE SODIUM 100 MG CAPSULE PO SCH ×2 (08:35→21:18)
[2020-12-18] MEDS: DIVALPROEX SODIUM 500 MG DR TABLET PO SCH ×2 (08:35→21:18)
[2020-12-18] MEDS: METOPROLOL TARTRATE 25 MG TABLET PO SCH ×2 (08:35→21:18)
[2020-12-18] MEDS: BACLOFEN 10 MG TABLET PO SCH ×2 (08:36→21:19)
[2020-12-18] MEDS: CarBAMazepine 200 MG TABLET PO SCH ×2 (08:36→21:19)
[2020-12-18] MEDS: LevETIRAcetam 500 MG TABLET PO SCH ×2 (08:36→21:19)
[2020-12-18] MEDS: RisperiDONE 1 MG TABLET PO SCH (08:36)
[2020-12-18] MEDS ORDERED: MIDAZOLAM HCL 2 MG/2 ML VIAL IVP ONE (12:00)
[2020-12-18] MEDS ORDERED: FentaNYL CITRATE PF 100 MCG/2 ML VIAL IVP ONE (12:00)
[2020-12-18] MEDS ORDERED: LACTULOSE 20 GM/30 ML SOLUTION UDCUP PO PRN (16:15)
[2020-12-18] MEDS: RisperiDONE 1 MG TABLET PO PRN ×2 (21:18→23:55)
[2020-12-18] MEDS: LACTULOSE 20 GM/30 ML SOLUTION UDCUP PO SCH (21:18)
[2020-12-18] MEDS ORDERED: SODIUM CHLORIDE 0.9% 250 ML IV ONE (23:50)
[2020-12-19] VITALS (7 sets, daily range): BP systolic 118–145; BP diastolic 64–89
[2020-12-19] MEDS: DEXAMETHASONE SOD PHOS 4 MG/ML VIAL IVP PRN (01:44)
[2020-12-19] MEDS: DiphenhydrAMINE HCL 50 MG/ML VIAL IVP PRN ×2 (04:38→16:58)
[2020-12-19] MEDS: ONDANSETRON HCL 4 MG/2 ML VIAL IVP PRN (04:38)
[2020-12-19] MEDS: NAFCILLIN SODIUM 2 GM in DEXTROSE 5%-WATER 100 ML IV SCH ×6 (04:38→23:56)
[2020-12-19 05:41] LABS: BASOPHILS % (AUTO) 1.2 % (0.0-2.0); EOSINOPHILS % (AUTO) 0.7 % (1.0-6.0); HEMOGLOBIN 9.7 g/dL (12.0-16.0); LYMPHOCYTES # (AUTO) 1.3 K/uL (1.0-4.8); LYMPHOCYTES % (AUTO) 26.2 % (22.0-44.0); MEAN CORPUSCULAR HEMOGLOBIN 24.3 pg (26.0-34.0); MEAN CORPUSCULAR HGB CONC 31.5 G/dL (31.0-37.0); MEAN CORPUSCULAR VOLUME 77 fL (80-100); MONOCYTES # (AUTO) 0.2 K/uL (0.1-1.0); MONOCYTES % (AUTO) 3.6 % (2.0-9.0); NEUTROPHILS # (AUTO) 3.4 K/uL (1.8-7.7); NEUTROPHILS % (AUTO) 68.3 % (40.0-70.0); PLATELET COUNT (AUTO) 485 K/uL (150-450); RED CELL DISTRIBUTION WIDTH 16.4 % (11.5-14.5)
[2020-12-19 06:03] LABS: ALANINE AMINOTRANSFERASE 11 U/L (12-78); ALKALINE PHOSPHATASE 74 U/L (46-116); ANION GAP 11 mmol/L (8-16); ASPARTATE AMINOTRANSFERASE 7 U/L (15-37); BILIRUBIN,TOTAL 0.6 mg/dL (0.1-1.0); CALCIUM, TOTAL 8.8 mg/dL (8.8-10.5); CARBON DIOXIDE 23 mmol/L (22-29); CHLORIDE 100 mmol/L (98-107); CREATININE 0.83 mg/dL (0.60-1.30); GLOMERULAR FILTR. RATE CALC > 60 mL/min (>60); GLUCOSE,RANDOM 163 mg/dL (70-110); POTASSIUM 4.2 mmol/L (3.5-5.1); SODIUM SERUM 134 mmol/L (136-145); TOTAL PROTEIN, SERUM 7.4 g/dL (6.4-8.2); UREA NITROGEN, BLOOD 17 mg/dL (7-18)
[2020-12-19] MEDS ORDERED: VANCOMYCIN HCL 1 GM/VIAL ONE (07:01)
[2020-12-19] MEDS ORDERED: LIDOCAINE 1%/EPI 1:200,000/PF 10 ML VIAL ONE (07:01)
[2020-12-19] MEDS ORDERED: CefTRIAXone SODIUM 1 GM/VIAL ONE (07:01)
[2020-12-19] MEDS ORDERED: BACITRACIN 50,000 UNITS/VIAL ONE (07:02)
[2020-12-19] MEDS ORDERED: SODIUM CHLORIDE 0.9% 100 ML ONE (07:02)
[2020-12-19] MEDS ORDERED: SODIUM CHLORIDE 0.9% 500 ML IV ONE (07:02)
[2020-12-19] MEDS ORDERED: SODIUM CHLORIDE 0.9% 1,000 ML ONE (07:34)
[2020-12-19] MEDS: BACLOFEN 10 MG TABLET PO SCH ×2 (08:59→23:55)
[2020-12-19] MEDS: HYDROCODONE/ACETAMINOPHEN 10-325 MG TABLET PO PRN (08:59)
[2020-12-19] MEDS: METOPROLOL TARTRATE 25 MG TABLET PO SCH ×2 (09:00→21:36)
[2020-12-19] MEDS: DIVALPROEX SODIUM 500 MG DR TABLET PO SCH ×2 (09:00→21:36)
[2020-12-19] MEDS: LACTULOSE 20 GM/30 ML SOLUTION UDCUP PO SCH ×3 (09:00→21:35)
[2020-12-19] MEDS: DOCUSATE SODIUM 100 MG CAPSULE PO SCH ×2 (09:00→21:35)
[2020-12-19] MEDS: LevETIRAcetam 500 MG TABLET PO SCH ×2 (09:00→21:36)
[2020-12-19] MEDS: RisperiDONE 1 MG TABLET PO SCH (09:00)
[2020-12-19] MEDS: CarBAMazepine 200 MG TABLET PO SCH ×2 (09:00→21:37)
[2020-12-19] MEDS ORDERED: RINGERS SOLUTION,LACTATED 1,000 ML IV ONE (09:54)
[2020-12-19] MEDS ORDERED: HYDROCODONE/ACETAMINOPHEN 10-325 MG TABLET PO PRN (10:00)
[2020-12-19] MEDS ORDERED: BACITRACIN 28 GM OINTMENT TP PRN (10:00)
[2020-12-19] MEDS ORDERED: BENZOCAINE/MENTHOL LOZENGE PO PRN (10:00)
[2020-12-19] MEDS ORDERED: FentaNYL CITRATE PF 100 MCG/2 ML VIAL IVP PRN (10:30)
[2020-12-19] MEDS ORDERED: BACITRACIN 28 GM OINTMENT TP ONE (10:50)
[2020-12-19] MEDS ORDERED: ACETAMINOPHEN 1000 MG/ISO-OSM 100 ML IV ONE (11:07)
[2020-12-19] MEDS ORDERED: SUGAMMADEX SODIUM 200 MG/2 ML VIAL IVP ONE (11:07)
[2020-12-19] MEDS ORDERED: HYDROmorphone 2 MG/ML VIAL ONE (11:48)
[2020-12-19] MEDS: HYDROmorphone 2 MG/ML VIAL IVP PRN ×5 (11:54→20:11)
[2020-12-19] MEDS ORDERED: ROCURONIUM BROMIDE 10 MG/ML 5 ML VIAL IVP ONE (12:00)
[2020-12-19] MEDS ORDERED: LIDOCAINE/PF 2% 5 ML VIAL IM ONE (12:00)
[2020-12-19] MEDS ORDERED: ONDANSETRON HCL 4 MG/2 ML VIAL IVP ONE (12:00)
[2020-12-19] MEDS ORDERED: DEXAMETHASONE SOD PHOS 4 MG/ML VIAL IVP ONE (12:00)
[2020-12-19] MEDS ORDERED: METOCLOPRAMIDE HCL 5 MG/ML 2 ML VIAL IVP ONE (12:00)
[2020-12-19] MEDS ORDERED: PROPOFOL 1% 20 ML VIAL IVP ONE (12:00)
[2020-12-19] MEDS: CeFAZolin 1 GM/DEXTROSE 50 ML IV SCH (17:39)
[2020-12-19] MEDS ORDERED: ACETAMINOPHEN 325 MG/ISO-OSM 32.5 ML IV SCH (19:00)
[2020-12-19] MEDS: OXYGEN THERAPY IH SCH (19:57)
[2020-12-19] MEDS: ACETAMINOPHEN 1000 MG/ISO-OSM 100 ML IV SCH (20:01)
[2020-12-20] MEDS: DiphenhydrAMINE HCL 50 MG/ML VIAL IVP PRN ×3 (02:29→20:03)
[2020-12-20] MEDS: HYDROmorphone 2 MG/ML VIAL IVP PRN (02:30)
[2020-12-20] MEDS: CeFAZolin 1 GM/DEXTROSE 50 ML IV SCH (02:36)
[2020-12-20] MEDS: NAFCILLIN SODIUM 2 GM in DEXTROSE 5%-WATER 100 ML IV SCH ×5 (04:21→20:03)
[2020-12-20 05:03] VITALS: BP 107/64
[2020-12-20] MEDS: ACETAMINOPHEN 1000 MG/ISO-OSM 100 ML IV SCH ×2 (05:37→11:27)
[2020-12-20 07:36] VITALS: BP 104/65
[2020-12-20] MEDS: ONDANSETRON HCL 4 MG/2 ML VIAL IVP PRN (07:49)
[2020-12-20] MEDS: DOCUSATE SODIUM 100 MG CAPSULE PO SCH ×2 (07:49→20:02)
[2020-12-20] MEDS: CarBAMazepine 200 MG TABLET PO SCH ×2 (07:49→20:02)
[2020-12-20] MEDS: BACLOFEN 10 MG TABLET PO SCH ×2 (07:49→20:01)
[2020-12-20] MEDS: LACTULOSE 20 GM/30 ML SOLUTION UDCUP PO SCH ×3 (07:50→21:00)
[2020-12-20] MEDS: RisperiDONE 1 MG TABLET PO SCH (07:50)
[2020-12-20] MEDS: DIVALPROEX SODIUM 500 MG DR TABLET PO SCH ×2 (07:50→20:01)
[2020-12-20] MEDS: LevETIRAcetam 500 MG TABLET PO SCH ×2 (07:50→20:01)
[2020-12-20] MEDS: OXYGEN THERAPY IH SCH ×2 (08:00→21:44)
[2020-12-20 11:16] VITALS: BP 107/65
[2020-12-20] MEDS: METOPROLOL TARTRATE 25 MG TABLET PO SCH ×2 (11:25→20:01)
[2020-12-20 16:06] VITALS: BP 103/64
[2020-12-20] MEDS: HYDROCODONE/ACETAMINOPHEN 10-325 MG TABLET PO PRN ×2 (17:40→22:49)
[2020-12-20 19:40] VITALS: BP 114/57
[2020-12-20] MEDS: RisperiDONE 1 MG TABLET PO PRN (22:57)
[2020-12-20 23:55] VITALS: BP 136/70
[2020-12-21] MEDS: NAFCILLIN SODIUM 2 GM in DEXTROSE 5%-WATER 100 ML IV SCH ×4 (00:07→13:22)
[2020-12-21] MEDS: ONDANSETRON HCL 4 MG/2 ML VIAL IVP PRN (00:11)
[2020-12-21] MEDS: HYDROmorphone 2 MG/ML VIAL IVP PRN ×2 (00:55→08:44)
[2020-12-21] MEDS: DiphenhydrAMINE HCL 50 MG/ML VIAL IVP PRN (04:55)
[2020-12-21 05:16] VITALS: BP 109/62
[2020-12-21 07:45] VITALS: BP 114/69
[2020-12-21] MEDS: OXYGEN THERAPY IH SCH (08:00)
[2020-12-21] MEDS: LACTULOSE 20 GM/30 ML SOLUTION UDCUP PO SCH (09:00)
[2020-12-21] MEDS: METOPROLOL TARTRATE 25 MG TABLET PO SCH (09:00)
[2020-12-21] MEDS: DOCUSATE SODIUM 100 MG CAPSULE PO SCH (09:00)
[2020-12-21] MEDS: DIVALPROEX SODIUM 500 MG DR TABLET PO SCH (09:42)
[2020-12-21] MEDS: RisperiDONE 1 MG TABLET PO SCH (09:42)
[2020-12-21] MEDS: CarBAMazepine 200 MG TABLET PO SCH (09:42)
[2020-12-21] MEDS: BACLOFEN 10 MG TABLET PO SCH (09:43)
[2020-12-21] MEDS: LevETIRAcetam 500 MG TABLET PO SCH (09:43)
[2020-12-21] MEDS ORDERED: LOPERAMIDE HCL 2 MG CAPSULE PO PRN (10:30)
[2020-12-21 11:21] VITALS: BP 126/74
[2020-12-21] MEDS ORDERED: BACL10TA PO (13:33)
[2020-12-21] MEDS ORDERED: CARB400T3 PO (13:35)
[2020-12-21] MEDS ORDERED: DIVA-112 PO (13:35)
[2020-12-21] MEDS ORDERED: LACT30L PO (13:36)
[2020-12-21] MEDS ORDERED: LEVE500T53 PO ×2 (13:37→13:38)
[2020-12-21] MEDS ORDERED: METO25 PO (13:39)
[2020-12-21] MEDS ORDERED: [UNRECOGNIZED DRUG - CODE] IV (13:40)
[2020-12-21] MEDS ORDERED: RISP1TAB48 PO (13:41)
[2020-12-21] MEDS ORDERED: BACI28.42 TP (13:44)
== END 2020-12-21 14:40 | disposition home or self-care (01) | DRG 711 ==
LOC: SURGERY 07:18 → INTOOBSV 07:50 → 5S 07:50 → UNDOADMIN 16:15 → 5S 16:15 → OBSVTOIN 16:15 → ICU 12-13 13:40 → 5S 12-19 22:45
PROVIDERS: ADMIT Neurological Surgery; ATTEND Neurological Surgery
PROC: 00P60JZ Removal of Synthetic Substitute from Cerebral Ventricle, Open Approach (ICD-10-PCS; 2020-12-11)
PROC: 0WWG4JZ Revision of Synthetic Substitute in Peritoneal Cavity, Percutaneous Endoscopic Approach (ICD-10-PCS; 2020-12-11)
PROC: 02HV33Z Insertion of Infusion Device into Superior Vena Cava, Percutaneous Approach (ICD-10-PCS; 2020-12-12)
PROC: 00160J6 Bypass Cerebral Ventricle to Peritoneal Cavity with Synthetic Substitute, Open Approach (ICD-10-PCS; principal; 2020-12-19 10:00)
DX: T85.730A Infection and inflammatory reaction due to ventricular intracranial (communicating) shunt, initial encounter (principal); G91.9 Hydrocephalus, unspecified; R65.10 Systemic inflammatory response syndrome (SIRS) of non-infectious origin without acute organ dysfunction; E87.1 Hypo-osmolality and hyponatremia; Y83.1 Surgical operation with implant of artificial internal device as the cause of abnormal reaction of the patient, or of later complication, without mention of misadventure at the time of the procedure; G80.9 Cerebral palsy, unspecified; D64.9 Anemia, unspecified; M54.2 Cervicalgia; Z20.822 Contact with and (suspected) exposure to COVID-19; Y92.89 Other specified places as the place of occurrence of the external cause; G40.909 Epilepsy, unspecified, not intractable, without status epilepticus; A49.01 Methicillin susceptible Staphylococcus aureus infection, unspecified site
CPT/HCPCS: 36245; 36569; 70450; 71045; 80048; 80053; 80202; 82945; 83735; 84100; 84132; 84157; 84702; 85025; 85610; 85730; 86140; 86850; 86900; 86901; 86923; 87070; 87077; 87081; 87101; 87186; 87205; 87426; 89051; 93005; 97116; 97162; 97166; 97167; 97168; 97530; 97535; A9575; G0238; G0378; J0131; J0690; J0692; J0696; J1100; J1170; J1200; J1885; J2250; J2270; J2405; J2704; J2765; J3010; J3370; J3480; J3490; J7030; J7040; J7050; J7060; J7120; 36415-L1; 36415-TC; C1716; C9803; Z7610

== ENCOUNTER 2024-04-12 11:59 | Inpatient (IN) | payer OTHER ==
[~2024-04-12] VITALS: Ht 165.1 cm; Wt 84.6 kg
[~2024-04-12 11:59] MED LIST: BACI28OI28 TP; BACL10TA PO; CARB400T3 PO; DIVA-112 PO; LACT10SO10 PO; LEVE-71 PO; METO25 PO; RISP1TAB48 PO; [UNRECOGNIZED DRUG - CODE] IV
[2024-04-12 13:13] LABS: BASOPHILS % (AUTO) 0.6 % (0.0-2.0); EOSINOPHILS % (AUTO) 0.5 % (1.0-6.0); HEMATOCRIT 39.9 % (36-46); HEMOGLOBIN 13.3 g/dL (12.0-16.0); LYMPHOCYTES # (AUTO) 1.5 K/uL (1.0-4.8); LYMPHOCYTES % (AUTO) 27.2 % (22.0-44.0); MEAN CORPUSCULAR HEMOGLOBIN 27.9 pg (26.0-34.0); MEAN CORPUSCULAR HGB CONC 33.3 G/dL (31.0-37.0); MEAN CORPUSCULAR VOLUME 84 fL (80-100); MONOCYTES # (AUTO) 0.3 K/uL (0.1-1.0); MONOCYTES % (AUTO) 5.8 % (2.0-9.0); NEUTROPHILS # (AUTO) 3.7 K/uL (1.8-7.7); NEUTROPHILS % (AUTO) 65.9 % (40.0-70.0); PLATELET COUNT (AUTO) 291 K/uL (150-450); RED BLOOD CELL COUNT(AUTO) 4.77 MIL/uL (4.00-5.20); RED CELL DISTRIBUTION WIDTH 13.7 % (11.5-14.5); WHITE BLOOD COUNT (AUTO) 5.6 K/uL (4.5-11.0)
[2024-04-12 13:15] LABS: PH,URINE DRUG SCREEN 7.5 (5.0-8.0)
[2024-04-12 13:23] LABS: ALCOHOL, URINE DRUG SCREEN NEGATIVE (NEGATIVE); AMPHET/METH SCREEN,URINE NEGATIVE (NEGATIVE); BARBITURATE SCREEN, URINE NEGATIVE (NEGATIVE); BENZODIAZEPINES SCREEN,URINE POSITIVE (NEGATIVE); CANNABINOID SCREEN,URINE NEGATIVE (NEGATIVE); COCAINE SCREEN,URINE POSITIVE (NEGATIVE); METHADONE SCREEN, URINE NEGATIVE (NEGATIVE); OPIATE SCREEN,URINE NEGATIVE (NEGATIVE); PHENCYCLIDINE SCREEN,URINE NEGATIVE (NEGATIVE)
[2024-04-12] MEDS ORDERED: LORA-1000 PO (13:24)
[2024-04-12] MEDS ORDERED: HALO5TAB23 PO (13:26)
[2024-04-12 13:29] LABS: ANION GAP 13 mmol/L (8-16); CALCIUM, TOTAL 8.6 mg/dL (8.8-10.5); CARBON DIOXIDE 20 mmol/L (22-29); CHLORIDE 104 mmol/L (98-107); CREATININE 0.76 mg/dL (0.60-1.30); GLOMERULAR FILTR. RATE CALC > 60 mL/min (>60); GLUCOSE,RANDOM 96 mg/dL (70-110); POTASSIUM 3.6 mmol/L (3.5-5.1); SODIUM SERUM 137 mmol/L (136-145); UREA NITROGEN, BLOOD 17 mg/dL (7-18)
[2024-04-12 13:32] LABS: ALCOHOL, BLOOD (SERUM) < 3 mg/dL (0-10)
[2024-04-12] MEDS ORDERED: MORPHINE SULFATE 2 MG/ML SYRINGE IVP PRN (14:30)
[2024-04-12] MEDS ORDERED: MAGNESIUM HYDROXIDE SUSPENSION 30 ML UDCUP PO PRN (14:30)
[2024-04-12] MEDS ORDERED: ZOLPIDEM TARTRATE 5 MG TABLET PO PRN (14:30)
[2024-04-12] MEDS ORDERED: BISACODYL 10 MG RECTAL RECTAL SUPPOSITORY PR PRN (14:30)
[2024-04-12] MEDS ORDERED: ONDANSETRON HCL 4 MG/2 ML VIAL IVP PRN (14:30)
[2024-04-12 14:33] LABS: COVID AG,FIA SOURCE NASAL SWAB
[2024-04-12] MEDS ORDERED: RISP2TAB45 PO (14:40)
[2024-04-12 14:52] LABS: SARS-COV2 (COVID) ANTIGEN,FIA Negative (Negative)
[2024-04-12] MEDS: HEPARIN SODIUM,PORCINE 5,000 UNITS/ML VIAL SQ SCH (16:00)
[2024-04-12] MEDS: HYDROCODONE/ACETAMINOPHEN 5-325 MG TABLET PO PRN (17:38)
[2024-04-12] MEDS: LACTULOSE 20 GM/30 ML SOLUTION UDCUP PO SCH (17:38)
[2024-04-12 21:15] VITALS: BP 140/70; PULSE 66; RESP 20; TEMP 98; O2SAT 99
[2024-04-12] MEDS: DOCUSATE SODIUM 100 MG CAPSULE PO SCH (22:24)
[2024-04-12] MEDS: RisperiDONE 2 MG TABLET PO SCH (22:24)
[2024-04-12] MEDS: METOPROLOL TARTRATE 25 MG TABLET PO SCH (22:24)
[2024-04-12] MEDS: LevETIRAcetam 500 MG TABLET PO SCH (22:24)
[2024-04-12] MEDS: CarBAMazepine 200 MG ER TABLET PO SCH (22:25)
[2024-04-12] MEDS: AMOX TR/POT CLAV 500 MG/125 MG TABLET PO SCH (22:25)
[2024-04-13 03:00] VITALS: BP 102/52; PULSE 72; RESP 18; TEMP 98.3; O2SAT 96
[2024-04-13] MEDS: BACLOFEN 10 MG TABLET PO SCH (08:03)
[2024-04-13 08:04] VITALS: BP 115/74; PULSE 73; RESP 18; TEMP 98.4; O2SAT 94
[2024-04-13] MEDS: PANTOPRAZOLE SODIUM 40 MG DR TABLET PO SCH (08:04)
[2024-04-13] MEDS ORDERED: LevETIRAcetam 500 MG TABLET PO SCH (09:00)
[2024-04-13] MEDS ORDERED: SERT-440 PO (11:48)
[2024-04-13] MEDS ORDERED: HALO5TAB2 PO (11:48)
[2024-04-13] MEDS ORDERED: GUAN3TAB2 PO (11:48)
[2024-04-13] MEDS: ZINC SULFATE 220 MG CAPSULE PO SCH (12:12)
[2024-04-13] MEDS: ASCORBIC ACID 500 MG TABLET PO SCH (12:12)
[2024-04-13] MEDS ORDERED: CHOL100062 PO (12:36)
[2024-04-13] MEDS ORDERED: HYDR-4527 PO (12:36)
[2024-04-13] MEDS ORDERED: OLOP5DRO27 OU (12:36)
[2024-04-13 15:39] VITALS: BP 103/58; PULSE 92; RESP 16; TEMP 97.9; O2SAT 95
[2024-04-13] MEDS: GuanFACINE HCL 1 MG TABLET PO SCH (15:40)
[2024-04-13 19:30] VITALS: BP 115/71; PULSE 82; RESP 18; TEMP 98.5; O2SAT 93
[2024-04-13] MEDS: RisperiDONE 2 MG TABLET PO SCH (20:57)
[2024-04-13] MEDS: SERTRALINE HCL 100 MG TABLET PO SCH (20:57)
[2024-04-14 05:45] VITALS: BP 109/69; PULSE 91; RESP 18; TEMP 98.1; O2SAT 98
[2024-04-14 07:10] LABS: BASOPHILS % (AUTO) 0.5 % (0.0-2.0); EOSINOPHILS % (AUTO) 1.3 % (1.0-6.0); HEMATOCRIT 39.4 % (36-46); HEMOGLOBIN 13.2 g/dL (12.0-16.0); LYMPHOCYTES # (AUTO) 1.6 K/uL (1.0-4.8); LYMPHOCYTES % (AUTO) 30.8 % (22.0-44.0); MEAN CORPUSCULAR HEMOGLOBIN 28.2 pg (26.0-34.0); MEAN CORPUSCULAR HGB CONC 33.5 G/dL (31.0-37.0); MEAN CORPUSCULAR VOLUME 84 fL (80-100); MONOCYTES # (AUTO) 0.4 K/uL (0.1-1.0); MONOCYTES % (AUTO) 7.8 % (2.0-9.0); NEUTROPHILS # (AUTO) 3.2 K/uL (1.8-7.7); NEUTROPHILS % (AUTO) 59.6 % (40.0-70.0); PLATELET COUNT (AUTO) 325 K/uL (150-450); RED BLOOD CELL COUNT(AUTO) 4.68 MIL/uL (4.00-5.20); RED CELL DISTRIBUTION WIDTH 13.8 % (11.5-14.5); WHITE BLOOD COUNT (AUTO) 5.3 K/uL (4.5-11.0)
[2024-04-14 07:23] LABS: ANION GAP 11 mmol/L (8-16); CALCIUM, TOTAL 8.3 mg/dL (8.8-10.5); CARBON DIOXIDE 21 mmol/L (22-29); CHLORIDE 104 mmol/L (98-107); CREATININE 0.66 mg/dL (0.60-1.30); GLOMERULAR FILTR. RATE CALC > 60 mL/min (>60); GLUCOSE,RANDOM 96 mg/dL (70-110); POTASSIUM 3.5 mmol/L (3.5-5.1); SODIUM SERUM 136 mmol/L (136-145); UREA NITROGEN, BLOOD 16 mg/dL (7-18)
[2024-04-14 07:29] VITALS: BP 110/70; PULSE 84; RESP 18; TEMP 98.2; O2SAT 96
[2024-04-14 15:18] VITALS: BP 118/78; PULSE 74; RESP 20; TEMP 98.2; O2SAT 97
[2024-04-14 20:00] VITALS: BP 124/70; PULSE 79; RESP 18; TEMP 98.4; O2SAT 97
[2024-04-14] MEDS: FLUTICASONE PROPIONATE 50 MCG/SPRAY 16 GM NASAL SPRAY NASAL SCH (22:34)
[2024-04-15 04:00] VITALS: BP 127/75; PULSE 89; RESP 20; TEMP 97.9; O2SAT 97
[2024-04-15] MEDS: ACETAMINOPHEN 325 MG TABLET PO PRN (04:50)
[2024-04-15 09:12] LABS: BASOPHILS % (AUTO) 0.4 % (0.0-2.0); EOSINOPHILS % (AUTO) 1.2 % (1.0-6.0); HEMATOCRIT 41.8 % (36-46); LYMPHOCYTES # (AUTO) 1.9 K/uL (1.0-4.8); LYMPHOCYTES % (AUTO) 28.2 % (22.0-44.0); MEAN CORPUSCULAR HEMOGLOBIN 28.3 pg (26.0-34.0); MEAN CORPUSCULAR HGB CONC 33.4 G/dL (31.0-37.0); MEAN CORPUSCULAR VOLUME 85 fL (80-100); MONOCYTES # (AUTO) 0.5 K/uL (0.1-1.0); NEUTROPHILS # (AUTO) 4.1 K/uL (1.8-7.7); NEUTROPHILS % (AUTO) 62.2 % (40.0-70.0); PLATELET COUNT (AUTO) 327 K/uL (150-450); RED BLOOD CELL COUNT(AUTO) 4.93 MIL/uL (4.00-5.20); RED CELL DISTRIBUTION WIDTH 13.7 % (11.5-14.5); WHITE BLOOD COUNT (AUTO) 6.6 K/uL (4.5-11.0)
[2024-04-15 09:16] LABS: ANION GAP 10 mmol/L (8-16); CALCIUM, TOTAL 8.4 mg/dL (8.8-10.5); CARBON DIOXIDE 24 mmol/L (22-29); CHLORIDE 104 mmol/L (98-107); CREATININE 0.73 mg/dL (0.60-1.30); GLOMERULAR FILTR. RATE CALC > 60 mL/min (>60); GLUCOSE,RANDOM 88 mg/dL (70-110); SODIUM SERUM 138 mmol/L (136-145); UREA NITROGEN, BLOOD 16 mg/dL (7-18)
[2024-04-15] MEDS ORDERED: ASCO500C14 PO (15:51)
[2024-04-15] MEDS ORDERED: AMOX1TAB15 PO (15:52)
[2024-04-15] MEDS ORDERED: ZINC50CA3 PO (15:53)
== END 2024-04-15 16:16 | disposition home or self-care (01) | DRG 137 ==
LOC: EMS 11:59 → EDH 14:09 → 6N 21:12
PROVIDERS: ADMIT Internal Medicine; ATTEND Internal Medicine
DX: U07.1 COVID-19 (principal); R45.851 Suicidal ideations; G80.9 Cerebral palsy, unspecified; F25.0 Schizoaffective disorder, bipolar type; F79 Unspecified intellectual disabilities; L03.113 Cellulitis of right upper limb; F11.10 Opioid abuse, uncomplicated; F14.10 Cocaine abuse, uncomplicated; G40.909 Epilepsy, unspecified, not intractable, without status epilepticus; I10 Essential (primary) hypertension; K59.09 Other constipation; R45.88 Nonsuicidal self-harm; S61.451A Open bite of right hand, initial encounter
CPT/HCPCS: 80048; 80307; 85025; 87635; 99285; G0480; J1644